=== PATIENT | male | born 1965 | race Caucasian/White ===

== ENCOUNTER 2017-10-03 12:20 | Emergency (ER) | payer OTHER ==
[2017-10-03 12:36] VITALS: BP 128/77
[2017-10-03] MEDS ORDERED: BSS OPTH.SOL* BTL ONE (12:45)
[2017-10-03] MEDS ORDERED: Fluorescein Sod TOPICAL 0.6* 0.6 MG TEST OPHTHALMIC ONE (12:45)
[2017-10-03] MEDS ORDERED: Tetracaine 0.5% OPTH.SOL 4 ML* 1 DROP BTL ONE (12:45)
--- NOTE | 2017-10-03 12:54 | UC ---
Eye Complaint HPI - HPI Summary HPI Summary: Pt presents with c/o right eye pain and "blurry" vision. Pt reports that he was grinding metal and "weed wacking" yesterday, feels like there is something in eye. - History of Current Complaint Chief Complaint: UCEye Stated Complaint: RT EYE COMP Time Seen by Provider: 10/03/17 12:23 Hx Obtained From: Patient Onset/Duration: Sudden Onset Timing: Constant Severity Initially: Mild Severity Currently: Moderate Pain Intensity: 0 Location of Injury: Conjunctiva Character: Dull, Foreign Body Sensation Aggravating Factor(s): Blinking Alleviating Factor(s): Nothing Associated Signs And Symptoms: Positive: Drainage (Clear), Vision Impairment Right Related History: Foreign Body - Risk Factors Penetrating Injury Risk Factor: Projectile Globe Rupture Risk Factors: Negative Acute Glaucoma Risk Factors: Negative Optic Artery Occlusion Risk Factors: Negative PMH/Surg Hx/FS Hx/Imm Hx Previously Healthy: Yes - Surgical History Surgical History: Yes Surgery Procedure, Year, and Place: left arm ORIF. mucous cell removed from lower lip. wisdom tooth extraction - Family History Known Family History: Positive: Cardiac Disease - Social History Occupation: Employed Full-time Lives: With Family Alcohol Use: Occasionally Substance Use Type: None Smoking Status (MU): Never Smoked Tobacco Have You Smoked in the Last Year: No Review of Systems Constitutional: Negative Skin: Negative Eyes: Blurred Vision, Drainage, Eye Redness, Photophobia ENT: Negative Respiratory: Negative Cardiovascular: Negative Gastrointestinal: Negative Genitourinary: Negative Motor: Negative Neurovascular: Negative Musculoskeletal: Negative Neurological: Negative Psychological: Negative Is Patient Immunocompromised?: No All Other Systems Reviewed And Are Negative: Yes Physical Exam Triage Information Reviewed: Yes Appearance: Well-Appearing Vital Signs: Initial Vital Signs Temp 98.5 F 10/03/17 12:32 Pulse 101 10/03/17 12:32 Resp 14 10/03/17 12:32 BP 128/77 10/03/17 12:32 Pulse Ox 97 10/03/17 12:32 Vital Signs Reviewed: Yes Eye Exam: Other Eyes: Positive: Discharge, Other: - FB at 8 O'clock position, ENT: Positive: Hearing grossly normal Respiratory Exam: Normal Cardiovascular Exam: Normal Musculoskeletal Exam: Normal Neurological Exam: Normal Psychological Exam: Normal Skin Exam: Normal Diagnostics - Laboratory Diagnostic Studies Completed/Ordered: FB removal done by Dr. Conner Eye Complaint Course/Dx - Course Course Of Treatment: FB removal by Dr. Conner - Differential Dx/Diagnosis Differential Diagnosis/HQI/PQRI: Conjunctivitis, Foreign Body Provider Diagnoses: FB-removed. corneal abrasions Discharge - Discharge Plan Referrals: Non Staff,Doctor [Primary Care Provider] -
[2017-10-03] MEDS: Tetan/Diph/Pertus SYR(Tdap)* 0.5 ML SYR(BOOSTRIX) use SYR IM ONE (13:05)
== END 2017-10-03 13:12 | disposition home or self-care (01) ==
LOC: UCCORT 12:20
DX: T15.01XA Foreign body in cornea, right eye, initial encounter (principal); S00.251A Superficial foreign body of right eyelid and periocular area, initial encounter; X58.XXXA Exposure to other specified factors, initial encounter; Y93.9 Activity, unspecified; Y92.9 Unspecified place or not applicable
CPT/HCPCS: 90471; 90715; 99202; A9270-GY; G0463